=== PATIENT | female | born 1955 | race Caucasian/White ===

== ENCOUNTER 2022-07-02 15:14 | Outpatient (CLI) | payer BC, SELFPAY ==
--- NOTE | 2022-07-02 15:30 | CRLHL7_ITS ---
For Patients: As a result of the Century Cures Act, medical imaging exams and procedure reports are released immediately into your electronic medical record. You may view this report before your referring provider. If you have questions, please contact your health care provider. DXA BONE MINERAL DENSITY STUDY Current height (in): 69.0. Weight (lb): 130.0. Menopause age: 27. Ethnicity: White. 1. Have you had a previous hip or vertebral fracture? No. 2. Have you had any fractures during your adult life which did not result from significant trauma (e.g., auto accident)? No. 3. Did either of your parents have a hip fracture? No. 4. Do you smoke? No. 5. Have you ever taken Glucocorticoids? No. 6. Do you have rheumatoid arthritis? No. 7. Do you have secondary osteoporosis? No. 8. Do you drink 3 or more alcoholic drinks per day? No. 9. Are you being treated for osteoporosis? No. 10. Have you ever taken any of the following medications: Actonel, Evista, Fosamax, Miacalcin, Reclast, Boniva, Forteo, HRT (i.e. estrogen/hormone therapy), Protelos, Prolia, Vitamin D, Calcium, other ??? please specify. ANSWER: Yes, Actonel, vitamin D, calcium. 11. Do you have any of the following medical conditions: Anorexia or bulimia, asthma or emphysema, end stage renal disease, hyperparathyroidism, any seizure disorders, cancer, inflammatory bowel diseases, hysterectomy, other ??? please specify. ANSWER: Yes, hysterectomy. 12. What was your maximum height (inches)? 69. 13. Do you perform weight bearing exercise regularly? No. 14. Do you regularly consume dairy products? No. 15. Do you drink caffeinated beverages? No. 16. At what age did your period start? 15. 17. Are you premenopausal? No. 18. How many full term pregnancies have you had? 3. 19. Have you ever missed your period for more than 6 months in a row (not including or menopause)? No. TECHNIQUE: Bone mineral density study was performed using the [employer]. FINDINGS: The results of the study expressed as bone mineral density (BMD) are as follows: Neck Left: BMD: 0.672 g/cm2. T-score: -1.6. Z-score: -0.1. Right: BMD: 0.661 g/cm2. T-score: -1.7. Z-score: -0.2. Total Left: BMD: 0.775 g/cm2. T-score: -1.4. Z-score: -0.1. Right: BMD: 0.805 g/cm2. T-score: -1.1. Z-score: 0.1. Radius Left 33%: BMD: 0.607 g/cm2. T-score: -1.4. Z-score: 0.2. IMPRESSION: Osteopenia. *Comparison exams done prior to 10/2019 were performed on different unit, [employer]. COMPARISON: Compared with scan of 08/10/2017, the bone mineral density has increased by 2.9 percent at the hips. FRAX 10-year Fracture Risk Major Osteoporotic Fracture: 7.8 percent Hip Fracture: 1.0 percent Reported Risk Factors: [place] () Neck BMD=0.661, BMI=19.2 JAKE KNOX MD Diagnostic/Nuclear Medicine Radiologist [email or web address] VEE/abby be/Dictated by: Jake Knox MD @ 07/03/2022 9:05:00 AM (Electronically Signed)
== END 2022-07-02 15:15 | disposition home or self-care (01) ==
LOC: RAD 15:15
PROVIDERS: PCP Family Medicine; Visit Provider Obstetrics & Gynecology
DX: M85.80 Other specified disorders of bone density and structure, unspecified site (principal); M85.89 Other specified disorders of bone density and structure, multiple sites
CPT/HCPCS: 77080

== ENCOUNTER 2023-03-23 08:07 | Outpatient (CLI) | payer BC, SELFPAY ==
--- OUTSIDE RECORDS SUMMARY | 2023-03-27 10:38 | XMS_ITS | Continuity of Care Document ---
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 Name Role Phone Mirella VAUGHN, Tania Unavailable Unavailable Allergies, Adverse Reactions, Alerts Substance Reaction Status Criticality No Known Allergies Active No Inform ation Medications Medication Instructions Dosage Effective Dates (start - stop) Status Comments OMEPRAZOLE (unknown strength) Not Available - Active GABAPENTIN (unknown strength) Not Available - Active CELEBREX (unknown strength) Not Available - Active Procedures Procedure Date Office/Outpatient Visit,Est, Mod 2019 X-Ray Exam Lower Spine 2-3 Views 2019 Postop Followup Visit X-Ray Exam Lower Spine 2-3 Views 2018 Pa Arthdsis Post/Posterolatrl/Postinterb serge Lumbar Pa Assist Insert Spine Fixation, Posteri or PA Assist Insert interbody cage w/fusion Arthdsis Post/Posterolatrl/Postinterbody Lumbar Insert Spine Fixation, Posterior 2018 Insert interbody cage w/fusion 19 Office/Outpatient Visit,New, [facility] 2018 Office/Outpatient Visit,Est, Mod 2011 X-Ray Exam Lower Spine 2-3 Views 2011 Postop Followup Visit Postop Followup Visit Bilateral Low Back Disk Surgery/Decompre ss Bilateral Pa Low Back Disk Surgery/Decom press Office/Outpatient Visit,[facility] Low 2011 Advance Directives Directive Yes / No Effective Date File Name No Information Encounters Encounter Description Practice Location Reason(s) For Visit Diagnoses Date Provider Providers Copied on Encounter [facility], [address], [place], [place], [id number], [place] tel:[phone] [facility] No Information 1 Mehbod Amir. [facility], [address] [place] [address], [place], [place], [id number] , [place]. tel:[phone] Office/Outpa tient Visit,Est, Mod [facility], [address], [place], [place], [id number], [place] tel:[phone] [facility] Spinal stenosis, lumbar region with neurogenic claudicationLo w back pain 0 Eckrguido Shi. [address] [place] [address], [id number] , [place]. tel:[phone] Referring Provider: Yaya Lauglhin, [facility] [address], [address]. tel:[phone] [facility], [address] [place] [address], [id number], [place] tel:[phone] [facility] Encounter for other specified surgical aftercare 9 Mehbod Amir. [facility], [address] [place] [address], [place], [place], [id number] , [place]. [phone] Referring Provider: Yaya Laughlin, [facility] [address], [address]. tel:[phone] [facility], [address], [place], [place], [id number], [place] [phone] [facility] No Information 9 Tyler Shi. [address] [place] [address], [id number] , [place]. [phone] Referring Provider: Yaya Laughlin [facility] [address], [address]. tel:[phone] [facility], [address] [place] [address], [id number], [place] tel:[phone] [facility] No Information 1-201 9 Mehbod Amir. [facility], [address], [place], [place], [id number] , [place]. tel:[phone] Referring Provider: Yaya Laughlin, [address], [address]. tel:[phone] Office/Outpa tient Visit,New, Mod [facility], [address], [place], [place], [id number], [place] tel:[phone] [facility] [place] Spinal stenosis, lumbar regionRadiculo zan, lumbar region Pasquale- 0-201 9 Mehbod Amir. [facility], [address], [place], [place], [id number] , [place]. tel:[phone] Referring Provider: Yaya Laughlin [address], [address]. tel:[phone] Z [facility], [address] [place] [address], [facility], [place] tel:[phone] [facility] No Information 3 Eckroth Jose Guadalupe. [address] [place] [address], [place], [id number] , [place]. tel: [phone] Office/Outpa tient Visit,Est, Mod Z [facility], [address] [place] [address], [place], [facility], [place] tel:[phone] [facility] - [facility] No Information Dec-0 3-201 2 Mehbod Amir. [facility], [address], [place], [place], [id number] , [place]. tel:[phone] Z [facility], [address] [place] [address], [facility], [place] tel:[phone] [facility] [place] LUMBAGO Oct- 1-201 2 Mehbod Amir. [facility], [address], [place], [place], [id number] , [place]. tel: [phone] Z [facility], [address], [place], [address], [place] tel:[phone] [facility] No Information 2 Mehbod Amir. [facility], [address], [place], [place], [id number] , [place]. tel: [phone] Z [facility], [address] [place], [place] [address], [place], [address], [place] tel:[phone] [facility] No Information 2 Mehbod Amir. [facility], [address] [place] [address] [address], [place], [place], [id number] , [place]. tel: [phone] Office/Outpa tient Visit,[facility] Z [facility], [address], [place], [address], [place] tel:[phone] [facility] No Information 2 Mehbod Amir. [facility], [address], [place], [place], [id number] , [place]. tel: [phone] Family History Family Member Type Diagnosis Age At Onset No Information Payers Payer name Insurance type Covered republican ID [place] [id number] [employer]/TPA BL [id number] Social History Type Description Quantity Date Captured Comments Sex Female Smoking Status No Information Chief Complaint And Reason For Visit No Information Reason For Referral Reason For Referral No Information Plan Of Treatment Date Type Action Status Future Order: Radiology Order AP -[id number]-[id number]-[id number] Lum (APLatFlExL), Ordered on: Ordered History Of Present Illness Encounter Date Complaint History Of Prese nt Illness No Information Functional Status Date Functional Assessmen t No Information Instructions Date Instruction Additional Infor mation No Information Assessments Type Assessment Date No Information Patient Care Teams Name Effective Dates (start - stop) Status Members No Information
--- OUTSIDE RECORDS SUMMARY | 2023-03-27 10:39 | XMS_ITS | Continuity of Care Document ---
Author Name Unknown Organization [facility] Address [address] [place] [address] Phone Care Team Providers Care Bone Density Technician Name Role Phone RN, RN Unavailable Unavailable Allergies, Adverse Reactions, Alerts Substance Reaction Status Criticality nickel Active No Information alendronate sodium Rash Active No Inform ation menthol Active No Information benzocaine Active No Information latex Active No Information Medications Medication Instructions Dosage Effective Dates (start - stop) Status Comments gabapentin 100 mg capsule - Active MIRALAX (unknown strength) Not Available - Active FLONASE ALLERGY RELIEF (unknown strength) spray 1 - 2 spray by intranasal route every day in each nostril as needed Not Available - Active Xarelto 20 mg tablet take 1 tablet by oral route every day with the evening meal 20 MG - Active Tylenol 325 mg tablet take 2 Tablet by oral route every 4 hours as needed 650 MG - Active Hair,Skin and Nails tablet - Active turmeric 400 mg capsule - Active risedronate 35 mg tablet take 1 tablet by oral route every week 35 MG - Active cranberry 500 mg capsule take 1 capsule by oral route every day 1 capsule - Active Vitamin D3 1,000 unit tablet take 1 by Oral route every day 1 - Active tolterodine 1 mg tablet take 1 tablet by oral route 2 times every day 1 MG - Active risedronate 35 mg tablet take 1 tablet by oral route every week in the morning, at least 30 min before first food, beverage, or medication of day 35 MG - Active Vitamin B-12 ER 1,000 mcg tablet,extended release - Active Calcium 600 600 mg calcium (1,500 mg) tablet - Active Flovent Diskus 50 mcg/actuation powder for inhalation inhale 1 puff by inhalation route 2 times every day 50 MCG - Active Procedures Procedure Date RF Cervical/Thoracic Addt'l Level RF Cervical/Thoracic Single Level Methylprednisolone Acetate-40 Change Control for Pharmaceuticals CC Control For Rem/Void Of Mutually Excl usive Proc RF Cervical/Thoracic Single Level RF Cervical/Thoracic Addt'l Level RF Cervical/Thoracic Addt'l Level RF Cervical/Thoracic Single Level Moderate Sedation (older Than 5 Years) N Triggerpoint 1-2 Muscle Est Pt Eval 25 Min Telehealth PT Eval - Low Complexity Therapeutic Exercise Manual Therapy Est Pt Eval 25 Min RF Cervical/Thoracic Single Level RF Cervical/Thoracic Addt'l Level Moderate Sedation (older Than 5 Years) M RF Cervical/Thoracic Single Level RF Cervical/Thoracic Addt'l Level RF Cervical/Thoracic Single Level RF Cervical/Thoracic Addt'l Level Moderate Sedation (older Than 5 Years) M Change Control for Procedure(s): 2020 RF Cervical/Thoracic Addt'l Level RF Cervical/Thoracic Single Level Change Control for Diagnosis(s) 021 Est Pt Eval 25 Min Telehealth Inj Anes Facet Jt; Cerv/thor-1st Level D Inj Anes Facet Jt; Cerv/thor-2nd Level D Inj Anes Facet Jt; Cerv/thor-3rd Level D Moderate Sedation (older Than 5 Years) D Change Control for Procedure(s): 2020 Change Control, No Medical Records Avail able Inj Anes Facet Jt; Cerv/thor-1st Level D Inj Anes Facet Jt; Cerv/thor-2nd Level D Inj Anes Facet Jt; Cerv/thor-3rd Level D Lidocaine 50 Cc Change Control for Diagnosis(s) 021 Change Control for Pharmaceuticals CC Control For Rem/Void Of Mutually Excl usive Proc Inj Anes Facet Jt; Cerv/thor-1st Level D Inj Anes Facet Jt; Cerv/thor-2nd Level D Inj Anes Facet Jt; Cerv/thor-3rd Level D Inj Anes Facet Jt; Cerv/thor-3rd Level D Inj Anes Facet Jt; Cerv/thor-2nd Level D Inj Anes Facet Jt; Cerv/thor-1st Level D Bupivicaine 30ml Change Control for Diagnosis(s) 020 Change Control for Pharmaceuticals Est Pt Eval 15 Min Telehealth 0 Global Postop Visit Revise/Remove SCS IPG Change Control, No Medical Records Avail able Removal Of Spenial Neurostimulator Elect rodes Change Control for Diagnosis(s) 020 CC Control For Rem/Void Of Mutually Excl usive Proc Removal Of Spinal Neurostimulator Electr odes Revise/Remove SCS (IPG) Moderate Sedation (older Than 5 Years) S Change Control for Procedure(s): 2019 Est Pt Eval 25 Min Est Pt Eval 15 Min Est Pt Eval 15 Min Est Pt Eval 15 Min Est Pt Eval 25 Min Est Pt Eval 25 Min RF Lumbar/Sacral Single Level 9 RF Lumbar/Sacral Addt'l Level 9 Methylprednisolone Acetate-40 9 RF Lumbar/Sacral Single Level 9 RF Lumbar/Sacral Addt'l Level 9 RF Lumbar/Sacral Single Level 9 RF Lumbar/Sacral Addt'l Level 9 RF Lumbar/Sacral Addt'l Level 9 RF Lumbar/Sacral Single Level 9 RF Lumbar/Sacral Addtl Level RF Lumbar/Sacral Addtl Level Moderate Sedation (older Than 5 Years) F Est Pt Eval 25 Min Therapeutic Exercise Therapeutic Activities Pt Seen-No Charge, Per Physician 2017 Therapeutic Exercise Greater Occipital Block Ultrason Guidan Needle Bx-rad 8 Inj Anes Agent; Greater Occipt Ultrason Guidan Needle Bx-rad 8 Inj Anes Agent; Greater Occipt 18 Inj Anes Agent; Greater Occipt 18 Therapeutic Activities Therapeutic Exercise Therapeutic Exercise Therapeutic Exercise Est Pt Eval 25 Min PT Eval - Low Complexity Therapeutic Exercise Inj Anes Facet Jt; Lumb/sac-3rd Level No Inj Anes Facet Jt; Lumb/sac-1st Level No Inj Anes Facet Jt; Lumb/sac-2nd Level No Inj Anes Facet Jt; Lumb/sac-1st Level No Inj Anes Facet Jt; Lumb/sac-1st Level No Inj Anes Facet Jt; Lumb/sac-2nd Level No Inj Anes Facet Jt; Lumb/sac-2nd Level No Inj Anes Facet Jt; Lumb/sac-3rd Level No Inj Anes Facet Jt; Lumb/sac-3rd Level No Inj Anes Facet Jt; Lumb/sac-1st Level No Inj Anes Facet Jt; Lumb/sac-2nd Level No Inj Anes Facet Jt; Lumb/sac-3rd Level No Inj Anes Facet Jt; Lumb/sac-2nd Level No Inj Anes Facet Jt; Lumb/sac-3rd Level No Inj Anes Facet Jt; Lumb/sac-1st Level No Inj Anes Facet Jt; Lumb/sac-1st Level No Inj Anes Facet Jt; Lumb/sac-1st Level No Inj Anes Facet Jt; Lumb/sac-2nd Level No Inj Anes Facet Jt; Lumb/sac-2nd Level No Inj Anes Facet Jt; Lumb/sac-3rd Level No Inj Anes Facet Jt; Lumb/sac-3rd Level No Inj Anes Facet Jt; Lumb/sac-1st Level No Inj Anes Facet Jt; Lumb/sac-2nd Level No Inj Anes Facet Jt; Lumb/sac-3rd Level No Est Pt Eval 25 Min Inj Anes Epidur; Lumb/sac 1 Le 18 Inj Anes Epidur; Lumb/sac 1 Le 18 Inj Anes Epidur; Lumb/sac 1 Le 18 Inj Anes Epidur; Lumb/sac 1 Le 18 Inj Anes Epidur; Lumb/sac 1 Le 18 Inj Anes Epidur; Lumb/sac-ea A 18 Inj Anes Epidur; Lumb/sac 1 Le 18 Inj Anes Epidur; Lumb/sac-ea A 18 Inj Anes Epidur; Lumb/sac 1 Le 18 Trans Epid Lumbosac each addl 8 Est Pt Eval 25 Min Global Postop Visit Implant SCS IPG Implant SCS Epi Lead Implant SCS IPG Implant SCS Epi Lead Implant SCS Epi Lead Implant SCS Epidi Lead Implant SCS Epidi Lead Implant SCS IPG Est Pt Eval 25 Min Global Postop Visit Stim Analysis W Reprog Implant SCS Epi Lead Implant SCS Epi Lead Implant SCS Epi Lead Implant SCS Epidi Lead Implant SCS Epidi Lead Moderate Sedation (older Than 5 Years) A Moderate Sedation (older Than 5 Years) A ddl 15 Min Est Pt Eval 25 Min Neuromuscular Re-education Therapeutic Exercise Therapeutic Exercise Inject, Spine, Cerv/Thor, Epi/subarc w/i mg Guid Inject, Spine, Cerv/Thor, Epi/subarc w/i mg Guid Inject, Spine, Cerv/Thor, Epi/subarc w/i mg Guid Therapeutic Exercise Inject, Spine, Cerv/Thor, Epi/subarc w/i mg Guid Inject, Spine, Cerv/Thor, Epi/subarc w/i mg Guid Inject, Spine, Cerv/Thor, Epi/subarc w/i mg Guid Therapeutic Exercise Therapeutic Exercise Neuromuscular Re-education Est Pt Eval 15 Min PT Eval - Moderate Complexity 8 Manual Therapy Therapeutic Exercise Est Pt Eval 25 Min Psychiatric Diagnostic Evaluation Est Pt Eval 25 Min Inj Anes Facet Jt; Cerv/thor-2nd Level J Inj Anes Facet Jt; Cerv/thor-3rd Level J Inj Anes Facet Jt; Cerv/thor-1st Level J Inj Anes Facet Jt; Cerv/thor-1st Level J Inj Anes Facet Jt; Cerv/thor-2nd Level J Inj Anes Facet Jt; Cerv/thor-3rd Level J Inj Anes Facet Jt; Cerv/thor-1st Level J Inj Anes Facet Jt; Cerv/thor-2nd Level J Inj Anes Facet Jt; Cerv/thor-3rd Level J Est Pt Eval 25 Min Moderate Sedation (older Than 5 Years) O RF Cervical/Thoracic Addt'l Level RF Cervical/Thoracic Single Level RF Cervical/Thoracic Single Level RF Cervical/Thoracic Single Level RF Cervical/Thoracic Addt'l Level RF Cervical/Thoracic Addt'l Level RF Cervical/Thoracic Addt'l Level RF Cervical/Thoracic Addt'l Level RF Cervical/Thoracic Single Level RF Cervical/Thoracic Addt'l Level RF Cervical/Thoracic Addt'l Level Moderate Sedation (older Than 5 Years) O Moderate Sedation (older Than 5 Years) A ddl 15 Min Est Pt Eval 25 Min Inj Anes Facet Jt; Cerv/thor-2nd Level S Inj Anes Facet Jt; Cerv/thor-1st Level S Inj Anes Facet Jt; Cerv/thor-3rd Level S Inj Anes Facet Jt; Cerv/thor-1st Level S Inj Anes Facet Jt; Cerv/thor-2nd Level S Inj Anes Facet Jt; Cerv/thor-3rd Level S Inj Anes Facet Jt; Cerv/thor-1st Level A Inj Anes Facet Jt; Cerv/thor-3rd Level A Inj Anes Facet Jt; Cerv/thor-2nd Level A Moderate Sedation (older Than 5 Years) A Inj Anes Facet Jt; Cerv/thor-1st Level A Inj Anes Facet Jt; Cerv/thor-1st Level A Inj Anes Facet Jt; Cerv/thor-2nd Level A Inj Anes Facet Jt; Cerv/thor-2nd Level A Inj Anes Facet Jt; Cerv/thor-3rd Level A Inj Anes Facet Jt; Cerv/thor-3rd Level A Inj Anes Facet Jt; Cerv/thor-1st Level A Inj Anes Facet Jt; Cerv/thor-2nd Level A Inj Anes Facet Jt; Cerv/thor-3rd Level A New Pt Eval 45 Min Advance Directives Directive Yes / No Effective Date File Name No Information Encounters Encounter Description Practice Location Reason(s) For Visit Diagnoses Date Provider Providers Copied on Encounter [facility], [address], [place], [id number], [place] tel:[phone] [facility] No Information 2 RN RN. [address], [place], [address], [place]. tel:[phone] Referring Provider: Edmundo Moscoso, [address], [place], [address]. tel:[phone] [facility], [address], [place], [address], [place] tel:[phone] [facility] [place] right neck pain (chief complaint) Spondylosis w/o myelopathy or radiculopathy , cervical regionSpondyl s w/o myelopathy or radiculopathy , cervicothor regionSpondyl osis w/o myelopathy or radiculopathy , cervical regionSpondyl s w/o myelopathy or radiculopathy , cervicothor region 1 [facility]. [address], [place], [place], [address], [place]. tel:[phone] Referring Provider: Edmundo Moscoso, [address], [place], [address]. tel:[phone] [facility], [address], [place], [place], [address], [place] tel:[phone] [facility] No Information 1 Danis Wyatt. [address] , [address], [place], [place], [address], [place]. tel:[phone] Referring Provider: Edmundo Moscoso, [address], [place], [address]. tel:[phone] [facility], [address], [place], [address], [place] tel:[phone] [facility] Spondyls w/o myelopathy or radiculopathy , cervicothor regionCervica lgiaSpondyls w/o myelopathy or radiculopathy , cervicothor regionCervica lgia 1 [facility]. [address] [facility] [address], [place], [place], [address], [place]. tel:[phone] Referring Provider: Abdifatah Damon, [address], [place], [address]. tel:[phone] [facility], [address], [place], [place], [address], [place] tel:[phone] [facility] bilateral neck pain (chief complaint) MyalgiaMyosit isMyositis, unspecifiedMy algia, unspecified site 1 Ermelinda Wilson. [address], [place] , [place], [address], [place]. tel:[phone] Referring Provider: Yaya Damon, [address], [place], [address]. tel:[phone] Est Pt Eval 25 Min Telehealth [facility], [address], [place], [place], [address], [place] tel:[phone] [facility] bilateral neck pain (chief complaint) Cervicalgia 1 Lon Tri. [address], [place], [address], [place]. tel:[phone] Referring Provider: Yaya Damon, [address], [place], [address]. tel:[phone] [facility], [address], [place], [address], [place] tel:[phone] [facility] CervicalgiaCe rvicalgiaOthe r cervical disc degeneration, cervicothorac ic region 1 Padmini Sands. [address] [address], [place], [address], [place]. tel:[phone] Referring Provider: Yaya Damon, [address], [place], [address]. tel:[phone] Est Pt Eval 25 Min [facility], [address], [place], [place], [address], [place] tel:[phone] [facility] bilateral neck pain (chief complaint) Cervical disc disorder at C4-C5 level with radiculopathy Postlaminecto my syndrome, not elsewhere classified 1 Tricia Barahona. [address] [facility] [address], [place], [address], [place]. tel:[phone] Referring Provider: Yaya Damon, [address], [place], [address]. tel:[phone] [facility], [address], [place], [place], [address], [place] tel:[phone] [facility] No Information 1 Sd Cronin. [address], [place], [address], [place]. tel:[phone] Referring Provider: Mehrdad Forde, [address], [place], [address]. tel:[phone] [facility], [address], [place], [address], [place] tel:[phone] [facility] Paige bilateral neck pain (chief complaint) Spondylosis without myelopathy or radiculopathy , cervical regionSpondyl osis w/o myelopathy or radiculopathy , cervical regionCervica l disc disorder at C5-C6 level with myelopathyOth er spondylosis, cervical region 1 [facility]. [address], [place], [place], [address], [place]. tel:[phone] Referring Provider: Mehrdad Forde, [address], [place], [address]. tel:[phone] [facility], [address], [place], [address], [place] tel:[phone] [facility] left neck pain (chief complaint) headache (chief complaint) Spondylosis without myelopathy or radiculopathy , cervical regionOther cervical disc degeneration, high cervical regionCervica lgia 1 [facility]. [address], [place], [place], [address], [place]. tel:[phone] Referring Provider: Abdifatah Damon, [address], [place], [address]. tel:[phone] [facility], [address], [place], [place], [address], [place] tel:[phone] [facility] No Information 1 Ermelinda Gardiner. [address], [place], [place], [address], [place]. tel:[phone] Referring Provider: Yaya Damon, [address], [place], [address]. tel:[phone] Est Pt Eval [address] [facility], [address], [place], [place], [address], [place] tel:[phone] [facility] headache (chief complaint) Other cervical disc degeneration, high cervical regionOther spondylosis, cervical regionPostlam inectomy syndrome, not elsewhere classified 1 Tricia Barahona. [address] [facility] [address], [place], [address], [place]. tel:[phone] Referring Provider: Yaya Damon, [address] [facility], [place], [address]. tel:[phone] [facility], [address], [place], [place], [address], [place] tel:[phone] [facility] No Information 0 Ermelinda Gardiner. [address], [place], [place], [address], [place]. tel:[phone] Referring Provider: Abdifatah Damon, [address], [place], [address]. tel:[phone] [facility], [address], [place], [address], [place] tel:[phone] [facility] Spondylosis without myelopathy or radiculopathy , cervical regionOther cervical disc degeneration, cervicothorac ic regionCervica lgia 0 [facility]. [address], [place], [place], [address], [place]. tel:[phone] Referring Provider: Abdifatah Damon, [address], [place], [address]. tel:[phone] [facility], [address], [place], [place], [address], [place] tel:[phone] [facility] No Information 0 Sd Croinn. [address], [place], [address], [place]. tel:[phone] Referring Provider: Mehrdad Forde, [address], [place], [address]. tel:[phone] [facility], [address], [place], [address], [place] tel:[phone] [facility] bilateral neck pain (chief complaint) Spondylosis without myelopathy or radiculopathy , cervical regionSpondyl osis w/o myelopathy of cervicothorac ic regionCervica lgiaSpondylos is w/o myelopathy or radiculopathy , cervical regionSpondyl s w/o myelopathy or radiculopathy , cervicothor regionCervica lgia 0 [facility]. [address], [place], [place], [address], [place]. tel:[phone] Referring Provider: Mehrdad Forde, [address], [place], [address]. tel:[phone] Est Pt Eval 15 Min [facility], [address], [place], [place], [address], [place] tel:[phone] [facility] back pain (chief complaint) Cervical disc disorder at C4-C5 level with radiculopathy Cervical disc disorder at C5-C6 level with radiculopathy Nov-0 5-202 0 Tricia Barahona. [address], [place], [place], [address], [place]. tel:[phone] Referring Provider: Yaya Damon, [address], [place], [address]. tel:[phone] [facility], [address], [place], [place], [address], [place] tel:[phone] [facility] bilateral neck pain (chief complaint) Cervical disc disorder with radiculopathy , unspecified cervical region Sep-3 0-202 0 RN RN. [address], [place], [address], [place]. tel:[phone] Referring Provider: Yaya Damon, [address], [place], [address]. tel:[phone] [facility], [address], [place], [address], [place] tel:[phone] [facility] bilateral neck pain (chief complaint) Radiculopathy , cervical regionCervica lgiaOpioid dependence, uncomplicated Other cervical disc degeneration, high cervical region Sep-2 2-202 0 [facility]. [address], [place], [place], [address], [place]. tel:[phone] Referring Provider: Abdifatah Damon, [address], [place], [address]. tel:[phone] [facility], [address], [place], [place], [address], [place] tel:[phone] [facility] No Information Sep-2 2-202 0 Ermelinda Gardiner. [address], [place], [place], [address], [place]. tel:[phone] Referring Provider: Abdifatah Damon, [address], [place], [address]. tel:[phone] [facility], [address], [place], [place], [address], [place] tel:[phone] [facility] Occipital neuralgia Sep-2 0 Ermelinda Gardiner. [address], [place], [place], [address], [place]. tel:[phone] Est Pt Eval 25 Min [facility], [address], [place], [place], [address], [place] tel:[phone] [facility] bilateral neck pain (chief complaint) Cervical disc disorder at C4-C5 level with radiculopathy Cervical disc disorder at C5-C6 level with myelopathyCer vical disc disorder at C5-C6 level with radiculopathy Intervertebra l disc disorders w radiculopathy , lumbar regionOccipit al neuralgia Aug-2 0 [employer]. [address] [place], [address], [place]. Referring Provider: Yaya Laughlin MD M, [facility] [address], [place], [address]. tel:[phone] Est Pt Eval 15 Min [facility], [address], [place], [place], [address], [place] tel:[phone] [facility] left neck pain (chief complaint) Cervical disc disorder at C4-C5 level with radiculopathy Cervical disc disorder at C5-C6 level with myelopathyCer vical disc disorder at C5-C6 level with radiculopathy Intervertebra l disc disorders w radiculopathy , lumbar regionOccipit al neuralgiaOpio id dependence, uncomplicated Other cervical disc degeneration at C4-C5 levelOther cervical disc degeneration at C5-C6 levelOther cervical disc degeneration, high cervical region Aug-2 0 0 [employer]. [address] [place], [address], [place]. Referring Provider: Yaya Damon, [address], [place], [address]. tel:[phone] Est Pt Eval 15 Min [facility], [address] [facility] [address], [place], [address], [place] tel:[phone] [facility] bilateral neck pain (chief complaint) Cervical disc disorder at C4-C5 level with radiculopathy Cervical disc disorder at C5-C6 level with myelopathyCer vical disc disorder at C5-C6 level with radiculopathy CervicalgiaHe adacheOther spondylosis, cervical regionChronic pain syndrome 8 0 Tricia Barahona. [address], [address], [place]. tel:[phone] Referring Provider: Yaya Damon, [address], [place], [address]. tel:[phone] Est Pt Eval 15 Min [facility], [address], [address], [place] tel:[phone] [facility] Hip Pain (chief complaint) back pain (chief complaint) Low back painOther intervertebra l disc degeneration, lumbosacral regionPain in left hipPain in left legPain in left footOther spondylosis with radiculopathy , lumbar region 2-201 9 Tricia Barahona. [address], [address], [place]. tel:[phone] Referring Provider: Yaya Damon, [address], [place], [address]. tel:[phone] Est Pt Eval 25 Min [facility], [address] [facility] [address], [place], [address], [place] tel:[phone] [facility] back pain (chief complaint) Other intervertebra l disc degeneration, lumbosacral regionLow back painOther spondylosis with radiculopathy , lumbar region May-0 9 Tricia Barahona. [address] [facility] [address], [place], [place], [address], [place]. tel:[phone] Referring Provider: Yaya Damon, [address], [place], [address]. tel:[phone] Est Pt Eval 25 Min [facility], [address] [facility] [address], [place], [place], [address], [place] tel:[phone] [facility] back pain (chief complaint) HeadacheOpioi d dependence, uncomplicated Other specified dorsopathies, cervical regionCervica lgiaLow back painSpondylos is w/o myelopathy or radiculopathy , lumbar region Aug- 9 Pressley Rougui. [address] [facility] [address], [address], [place]. tel:[phone] Referring Provider: Yaya Damon, [address] [facility], [place], [address]. tel:[phone] [facility], [address] [facility], [address], [address], [place] tel:[phone] [facility] back pain (chief complaint) Spondylosis w/o myelopathy or radiculopathy , lumbar regionSpondyl s w/o myelopathy or radiculopathy , lumbosacr regionOther intervertebra l disc degeneration, lumbar regionLow back painSpondylos is w/o myelopathy or radiculopathy , lumbar regionSpondyl s w/o myelopathy or radiculopathy , lumbosacr regionOther intervertebra l disc degeneration, lumbar regionLow back pain 9 Ermelinda Gardiner. [address] [facility] [address], [place], [place], [address], [place]. tel:[phone] Referring Provider: Wyatt Zayas MD, [address], [place], [address]. tel:[phone] [facility], [address], [place], [address], [place] tel:[phone] [facility] back pain (chief complaint) Spondylosis w/o myelopathy or radiculopathy , lumbar regionSpondyl s w/o myelopathy or radiculopathy , lumbosacr regionOther intervertebra l disc degeneration, lumbar regionLow back painSpondylos is w/o myelopathy or radiculopathy , lumbar regionSpondyl s w/o myelopathy or radiculopathy , lumbosacr regionOther intervertebra l disc degeneration, lumbar regionLow back pain 9 [facility]. [address], [place], [place], [address], [place]. tel:[phone] Referring Provider: Abdifatah Damon, [address], [place], [address]. tel:[phone] [facility], [address], [place], [place], [address], [place] tel:[phone] [facility] No Information 9 Ermelinda Gardiner. [address], [place], [place], [address], [place]. tel:[phone] Referring Provider: Yaya Damon, [address] [facility], [place], [address]. tel:[phone] Est Pt Eval [address] [facility], [address], [place], [place], [address], [place] tel:[phone] [facility] back pain (chief complaint) Postlaminecto my syndrome, not elsewhere classifiedSpo ndylosis w/o myelopathy or radiculopathy , lumbar regionInterve rtebral disc disorders w radiculopathy , lumbar region 8 Dinega Gelane. [address], [place], [address], [place]. tel:[phone] Referring Provider: Yaya Laughlin MD M, [address], [place], [address]. tel:[phone] [facility], [address], [place], [place], [address], [place] tel:[phone] [facility] CervicalgiaCe rvicalgiaLow back pain 8 Harmon Shavon. [address], [place], [address], [place]. tel:[phone] Referring Provider: Wyatt Zayas MD, [address] [place] [address] [address], [place], [address]. tel:[phone] [facility], [address], [place], [place], [address], [place] tel:[phone] [facility] Postlaminecto my syndrome, not elsewhere classified 8 RN RN. [address], [place], [place], [address], [place]. tel:[phone] Referring Provider: Tash SALINAS, [address], [place], [address]. tel:[phone] [facility], [address], [place], [place], [address], [place] tel:[phone] [facility] CervicalgiaCe rvicalgiaLow back pain 8 Harmon Shavon. [address], [place], [address], [place]. tel:[phone] Referring Provider: Wyatt Zayas MD, [address], [place], [address]. tel:[phone] [facility], [address], [place], [place], [address], [place] tel:[phone] [facility] No Information 8 Andrew Bianchi. [address], [place], [place], [address], [place]. tel:[phone] Referring Provider: Tash SALINAS, [address], [place], [address]. tel:[phone] [facility], [address], [place], [address], [place] tel:[phone] [facility] headache (chief complaint) Occipital neuralgiaCerv icalgiaHeadac heOccipital neuralgiaCerv icalgiaHeadac he [facility]. [address], [place], [place], [address], [place]. tel:[phone] Referring Provider: Tash SALINAS, [address], [place], [address]. tel:[phone] [facility], [facility], [address], [place], [place], [address], [place] tel:[phone] [facility] CervicalgiaLo w back pain 8 Kroy Membrenocy. [address], [place], [address], [place]. tel:[phone] Referring Provider: Wyatt Zayas MD, [address], [place], [address]. tel:[phone] [facility], [facility], [address], [place], [place], [address], [place] tel:[phone] [facility] CervicalgiaLo w back pain 8 [facility] Lexi. [address], [place], [address], [place]. tel:[phone] Referring Provider: Wyatt Zayas MD, [address] [place] [address] [address], [place], [address]. tel:[phone] [facility], [address], [place], [place], [address], [place] tel:[phone] [facility] CervicalgiaLo w back pain Apr- 8 [facility]. [address], [place], [address], [place]. tel:[phone] Referring Provider: Wyatt Zayas MD, [address] [place] [address] [address], [place], [address]. tel:[phone] Est Pt Eval 25 Min [facility], [address], [place], [place], [address], [place] tel:[phone] [facility] back pain (chief complaint) Occipital neuralgiaCerv ical disc disorder at C4-C5 level with radiculopathy Spondylosis w/o myelopathy or radiculopathy , lumbar regionPostlam inectomy syndrome, not elsewhere classified Apr- 8 Dinega Gelane. [address], [place], [address], [place]. tel:[phone] Referring Provider: Mehrdad Smith MD, [address] [place], [address]. tel:[phone] [facility], [address], [place], [place], [address], [place] tel:[phone] [facility] CervicalgiaLo w back pain Apr- 8 Padmini Sands. [address], [place], [address], [place]. tel:[phone] Referring Provider: Wyatt Zayas MD, [address], [place], [address]. tel:[phone] [facility], [address], [place], [place], [address], [place] tel:[phone] [facility] No Information 8 Ermelinda Gardiner. [address], [place], [place], [address], [place]. tel:[phone] Referring Provider: Abdifatah Damon, [address], [place], [address]. tel:[phone] [facility], [address], [place], [address], [place] tel:[phone] [facility] back pain (chief complaint) Spondyls w/o myelopathy or radiculopathy , lumbosacr regionOther intervertebra l disc degeneration, lumbar regionLow back painSpondylos is w/o myelopathy or radiculopathy , lumbar regionSpondyl osis w/o myelopathy or radiculopathy , lumbar regionSpondyl s w/o myelopathy or radiculopathy , lumbosacr regionOther intervertebra l disc degeneration, lumbar regionLow back pain [facility]. [address], [place], [place], [address], [place]. tel:[phone] Referring Provider: Abdifatah Damon, [address], [place], [address]. tel:[phone] [facility], [address], [facility] [address], [address], [place] tel:[phone] [facility] back pain (chief complaint) Spondylosis w/o myelopathy or radiculopathy , lumbar regionSpondyl osis w/o myelopathy or radiculopathy , lumbosacral regionOther intervertebra l disc degeneration, lumbar regionLow back painSpondylos is w/o myelopathy or radiculopathy , lumbar regionSpondyl s w/o myelopathy or radiculopathy , lumbosacr regionOther intervertebra l disc degeneration, lumbar regionLow back pain [facility]. [address], [place], [place], [address], [place]. tel:[phone] Referring Provider: Abdifatah Damon, [address], [place], [address]. tel:[phone] [facility], [address], [place], [place], [address], [place] tel:[phone] [facility] No Information Ermelinda Gardiner. [address], [place], [place], [address], [place]. tel:[phone] Referring Provider: Abdifatah Damon, [address], [place], [address]. tel:[phone] [facility], [address], [place], [place], [address], [place] tel:[phone] [facility] Cervicalgia 8 Laura Smith. [address], [place], [place], [address], [place]. tel:[phone] Referring Provider: Wyatt Zayas MD, [address], [place], [address]. tel:[phone] Est Pt Eval 25 Min [facility], [address], [place], [place], [address], [place] tel:[phone] [facility] back pain (chief complaint) Other spondylosis with radiculopathy , lumbar regionOther intervertebra l disc degeneration, lumbosacral regionInterve rtebral disc disorders w radiculopathy , lumbar regionOsseous and sublux stenosis of intvrt foramin of cerv region Dinega Gelane. [address], [place], [address], [place]. tel:[phone] Referring Provider: Wyatt Zayas MD, [address], [place], [address]. tel:[phone] [facility], [address], [address], [place], [address], [place] tel:[phone] [facility] back pain (chief complaint) Other intervertebra l disc degeneration, lumbosacral regionInterve rtebral disc disorders w radiculopathy , lumbar regionInterve rtebral disc disorders w radiculopathy , lumbar regionOther intervertebra l disc degeneration, lumbosacral region [facility]. [address], [place], [place], [address], [place]. tel:[phone] Referring Provider: Abdifatah Damon, [address], [place], [address]. tel:[phone] [facility], [address], [place], [place], [address], [place] tel:[phone] [facility] No Information 8 Ermelinda Gardiner. [address], [place], [place], [address], [place]. tel:[phone] Referring Provider: Abdifatah Damon, [address], [place], [address]. tel:[phone] [facility], [address], [address], [place], [address], [place] tel:[phone] [facility] back pain (chief complaint) Other spondylosis with radiculopathy , lumbar regionPostlam inectomy syndrome, not elsewhere classifiedPos tlaminectomy syndrome, not elsewhere classifiedOth er spondylosis with radiculopathy , lumbar region [facility]. [address], [place], [place], [address], [place]. tel:[phone] Referring Provider: Abdifatah Damon, [address], [place], [address]. tel:[phone] [facility], [facility], [address], [place], [place], [address], [place] tel:[phone] [facility] No Information 8 Ermelinda Gardiner. [address], [place], [place], [address], [place]. tel:[phone] Referring Provider: Abdifatah Damon, [address], [place], [address]. tel:[phone] Est Pt Eval 25 Min [facility], [facility], [address], [place], [place], [address], [place] tel:[phone] [facility] back pain (chief complaint) Other intervertebra l disc degeneration, lumbosacral regionPostlam inectomy syndrome, not elsewhere classifiedOth er cervical disc degeneration, high cervical region Dinega Gelane. [address], [place], [address], [place]. tel:[phone] Referring Provider: Wyatt Zayas MD, [address], [place], [address]. tel:[phone] [facility], [facility], [address], [place], [place], [address], [place] tel:[phone] [facility] left neck pain (chief complaint) Cervicalgia Sep- 8 RN RN. [address], [place], [place], [address], [place]. tel:[phone] Referring Provider: Wyatt Zayas MD, [address], [place], [address]. tel:[phone] [facility], [address], [address], [place], [address], [place] tel:[phone] [facility] bilateral neck pain (chief complaint) Spondylosis w/o myelopathy or radiculopathy , cervical regionOther cervical disc degeneration at C4-C5 levelCervical giaOpioid dependence, uncomplicated Sep- [facility]. [address], [place], [place], [address], [place]. tel:[phone] Referring Provider: Abdifatah Damon, [address], [place], [address]. tel:[phone] [facility], [address], [place], [place], [address], [place] tel:[phone] [facility] No Information Sep- 8 Ermelinda Gardiner. [address], [place], [place], [address], [place]. tel:[phone] Referring Provider: Abdifatah Damon, [address], [place], [address]. tel:[phone] Est Pt Eval 25 Min [facility], [facility], [address], [place], [place], [address], [place] tel:[phone] [facility] back pain (chief complaint) Cervical disc disorder at C4-C5 level with radiculopathy Other intervertebra l disc degeneration, lumbosacral regionPostlam inectomy syndrome, not elsewhere classified Sep-0 8 Jenn Garcia. [address] [facility], [place], [place], [address], [place]. tel:[phone] Referring Provider: Wyatt Zayas MD, [address], [place], [address]. tel:[phone] [facility], [address], [place], [place], [address], [place] tel:[phone] [facility] bilateral neck pain (chief complaint) Spondylosis w/o myelopathy or radiculopathy , cervical regionCervica l disc disorder at C5-C6 level with myelopathyOth er cervical disc degeneration at C4-C5 levelCervical giaSpondylosi s w/o myelopathy or radiculopathy , cervical region 8 8 RN RN. [address] [facility], [address], [place], [place], [address], [place]. tel:[phone] Referring Provider: Wyatt Zayas MD, [address], [place], [address]. tel:[phone] [facility], [address], [place], [address], [place] tel:[phone] [facility] Spondylosis w/o myelopathy or radiculopathy , cervical regionCervica l disc disorder at C4-C5 level with radiculopathy Other cervical disc degeneration at C4-C5 levelCervical giaSpondylosi s w/o myelopathy or radiculopathy , cervical regionCervica l disc disorder at C4-C5 level with radiculopathy Other cervical disc degeneration at C4-C5 levelCervical suhail 0-201 8 [facility]. [address], [place], [place], [address], [place]. tel:[phone] Referring Provider: Abdifatah Damon, [address], [place], [address]. tel:[phone] [facility], [address], [place], [place], [address], [place] tel:[phone] [facility] No Information 8 Ermelinda Gardiner. [address], [place], [place], [address], [place]. tel:[phone] Referring Provider: Abdifatah Damon, [address], [place], [address]. tel:[phone] Est Pt Eval [address] [facility], [address], [place], [place], [address], [place] tel:[phone] [facility] bilateral neck pain (chief complaint) Postlaminecto my syndrome, not elsewhere classifiedOth er cervical disc degeneration, high cervical region Jenn Garcia. [address], [place], [place], [address], [place]. tel:[phone] Referring Provider: Wyatt Zayas MD, [address], [place], [address]. tel:[phone] [facility], [address], [place], [place], [address], [place] tel:[phone] [facility] CervicalgiaCe rvicalgia 8 Padmini Sands. [address], [place], [address], [place]. tel:[phone] Referring Provider: Wyatt Zayas MD, [address], [place], [address]. tel:[phone] [facility], [address], [place], [place], [address], [place] tel:[phone] [facility] CervicalgiaCe rvicalgia 8 Kory Elliott. [address], [place], [address], [place]. tel:[phone] Referring Provider: Wyatt Zayas MD, [address], [place], [address]. tel:[phone] [facility], [address], [place], [address], [place] tel:[phone] [facility] bilateral neck pain (chief complaint) Cervical disc disorder at C4-C5 level with radiculopathy Other cervical disc degeneration at C5-C6 levelCervical disc disorder at C4-C5 level with radiculopathy Other cervical disc degeneration at C5-C6 level [facility]. [address], [place], [place], [address], [place]. tel:[phone] Referring Provider: Abdifatah Damon, [address], [place], [address]. tel:[phone] [facility], [address], [place], [place], [address], [place] tel:[phone] [facility] No Information 8 Ermelinda Gardiner. [address], [place], [place], [address], [place]. tel:[phone] Referring Provider: Abdifatah Damon, [address], [place], [address]. tel:[phone] [facility], [address], [place], [place], [address], [place] tel:[phone] [facility] CervicalgiaCe rvicalgia 8 Kory Elliott. [address], [place], [address], [place]. tel:[phone] Referring Provider: Wyatt Zayas MD, [address], [place], [address]. tel:[phone] [facility], [address], [place], [address], [place] tel:[phone] [facility] bilateral neck pain (chief complaint) Cervical disc disorder at C4-C5 level w radiculopathy Other cervical disc degeneration at C5-C6 levelCervical disc disorder at C4-C5 level with radiculopathy Other cervical disc degeneration at C5-C6 level [facility]. [address], [place], [place], [address], [place]. tel:[phone] Referring Provider: Abdifatah Damon, [address], [place], [address]. tel:[phone] [facility], [facility], [address], [place], [place], [address], [place] tel:[phone] [facility] No Information 8 Ermelinda Gardiner. [address], [place], [place], [address], [place]. tel:[phone] Referring Provider: Abdifatah Damon, [address], [place], [address]. tel:[phone] [facility], [facility], [address], [place], [place], [address], [place] tel:[phone] [facility] CervicalgiaCe rvicalgia 8 Kory Elliott. [address], [place], [address], [place]. tel:[phone] Referring Provider: Wyatt Zayas MD, [address], [place], [address]. tel:[phone] [facility], [facility], [address], [place], [place], [address], [place] tel:[phone] [facility] CervicalgiaCe rvicalgia 8 [facility] Sarah. [address] [facility] [address], [place], [address], [place]. tel:[phone] Referring Provider: Wyatt Zayas MD, [address], [place], [address]. tel:[phone] Est Pt Eval 15 Min [facility], [address], [place], [place], [address], [place] tel:[phone] [facility] bilateral neck pain (chief complaint) Cervical disc disorder at C5-C6 level with myelopathyIns omnia, unspecifiedSp ondylosis without myelopathy or radiculopathy , site unspMyalgiaCe rvicalgia 8 [facility]. [address] [facility], [place], [place], [address], [place]. tel:[phone] Referring Provider: Wyatt Zayas MD, [address], [place], [address]. tel:[phone] [facility], [address], [place], [place], [address], [place] tel:[phone] [facility] CervicalgiaCe rvicalgia 8 [facility]. [address] [facility] [address], [place], [place], [address], [place]. tel:[phone] Referring Provider: Wyatt Zayas MD, [address], [place], [address]. tel:[phone] Est Pt Eval 25 Min [facility], [address], [place], [place], [address], [place] tel:[phone] [facility] back pain (chief complaint) Other spondylosis, cervical regionOccipit al neuralgiaSpon dylosis w/o myelopathy or radiculopathy , cervical region 8 Kristy White. [address] [facility] [address], [place], [address], [place]. tel:[phone] Referring Provider: Wyatt Zayas MD, [address], [place], [address]. tel:[phone] [facility], [facility], [address], [place], [place], [address], [place] tel:[phone] [facility] Pain disorder with related psychological factors 8 Patrica Garza. [address], [place], [place], [address], [place]. tel:[phone] Referring Provider: Wyatt Zayas MD, [address], [place], [address]. tel:[phone] Est Pt Eval 25 Min [facility], [facility], [address], [place], [place], [address], [place] tel:[phone] [facility] bilateral neck pain (chief complaint) Other specified dorsopathies, cervical regionOsseous and sublux stenosis of intvrt foramin of cerv regionHeadach eOccipital neuralgiaRadi culopathy, cervical region 8 No Information Referring Provider: Wyatt Zayas MD, [address], [place], [address]. tel:[phone] [facility], [address], [place], [address], [place] tel:[phone] [facility] bilateral neck pain (chief complaint) Spondylosis w/o myelopathy or radiculopathy , cervical regionOther spondylosis, cervical regionSpondyl s w/o myelpath or radiculopathy , occipt-atlan- ax rgnSpondylosi s w/o myelopathy or radiculopathy , cervical regionOther spondylosis, cervical regionSpondyl s w/o myelpath or radiculopathy , occipt-atlan- ax rgn [facility]. [address], [place], [place], [address], [place]. tel:[phone] Referring Provider: Phan Rueda, [address], [place], [address]. tel:[phone] [facility], [address], [place], [place], [id number], [place] tel:[phone] [facility] No Information Marybeth Chisholm. [address], [place], [place], [id number], [place]. tel:[phone] Referring Provider: Phan Rueda, [address], [place], [address]. tel:[phone] Est Pt Eval [address] [facility], [address], [place], [place], [id number], [place] tel:[phone] [facility] left neck pain (chief complaint) jaw pain (chief complaint) Cervical disc disorder at C5-C6 level with radiculopathy Other cervical disc degeneration at C6-C7 levelOther specified dorsopathies, cervical regionSpondyl osis w/o myelopathy or radiculopathy , cervical regionTMJ disorderMyalg ia 7 [facility] [employer] Dawna. [address] [place], [address], [place]. tel:[phone] Referring Provider: Wyatt Zayas MD, [address], [place], [address]. tel:[phone] [facility], [address], [address], [place], [address], [place] tel:[phone] [facility] bilateral neck pain (chief complaint) Other cervical disc degeneration, high cervical region (C2-C3, C3-C4)Spondyl s w/o myelpath or radiculopathy , occipt-atlan- ax rgnSpondylosi s w/o myelopathy or radiculopathy , cervical regionOther cervical disc degeneration, mid-cervical region (C4-C5)Cervic al disc disorder at C5-C6 level with myelopathyCer vical disc disorder at C5-C6 level with radiculopathy Spondyls w/o myelpath or radiculopathy , occipt-atlan- ax rgnSpondylosi s w/o myelopathy or radiculopathy , cervical regionOther cervical disc degeneration at C4-C5 levelOther cervical disc degeneration, high cervical region [facility]. [address] [facility] [facility] [address], [place], [id number], [place]. tel:[phone] Referring Provider: Wyatt Zayas MD, [address] [place] [address], [address]. tel:[phone] [facility], [address] [facility] [address], [place], [id number], [place] tel:[phone] [facility] No Information 7 Chana Schneider. [address], [address], [address], [place]. tel:[phone] Referring Provider: Wyatt Zayas MD, [address] [place] [address], [address]. tel:[phone] Est Pt Eval 25 Min [facility], [address] [facility] [address], [place], [id number], [place] tel:[phone] [facility] bilateral neck pain (chief complaint) bilateral shoulder pain (chief complaint) Other cervical disc degeneration at C6-C7 levelCervical disc disorder at C5-C6 level with radiculopathy Other cervical disc degeneration at C4-C5 levelOther cervical disc degeneration at C5-C6 levelCervical disc disorder at C5-C6 level with myelopathy Sep-2 Rober Toney. [address] [place], [address], [place]. tel:[phone] Referring Provider: Yaya Laughlin MD M, [address], [place], [address]. tel:[phone] [facility], [address], [address], [place], [address], [place] tel:[phone] [facility] bilateral neck pain (chief complaint) Spondyls w/o myelpath or radiculopathy , occipt-atlan- ax rgnSpondylosi s w/o myelopathy or radiculopathy , cervical regionOther cervical disc degeneration, high cervical regionOther cervical disc degeneration, mid-cervical region (C4-C5)Spondy ls w/o myelpath or radiculopathy , occipt-atlan- ax rgnSpondylosi s w/o myelopathy or radiculopathy , cervical regionOther cervical disc degeneration, high cervical regionOther cervical disc degeneration at C4-C5 level Sep-1 [facility]. [address], [place], [id number], [place]. tel:[phone] Referring Provider: Wyatt Zayas MD, [address] [place] [address], [address]. tel:[phone] [facility], [address], [place], [id number], [place] tel:[phone] [facility] No Information Sep- Chana Schneider. [address], [address], [place], [address], [place]. tel:[phone] Referring Provider: Wyatt Zayas MD, [address], [place], [address]. tel:[phone] [facility], [address], [address], [place], [address], [place] tel:[phone] [facility] Spondylosis w/o myelopathy of occipito-atla nto-axial regionSpondyl osis w/o myelopathy of cervical regionOther cervical disc degeneration at C5-C6 levelOther cervical disc degeneration, high cervical regionOther cervical disc degeneration at C6-C7 levelPostlami nectomy syndrome, not elsewhere classified [facility]. [address], [place], [place], [id number], [place]. tel:[phone] Referring Provider: Wyatt Zayas MD, [address] [place] [address] [address], [place], [address]. tel:[phone] [facility], [address], [place], [place], [address], [place] tel:[phone] [facility] No Information 7 Chana Schneider. [address], [address], [place], [address], [place]. tel:[phone] Referring Provider: Wyatt Zayas MD, [address], [place], [address]. tel:[phone] New Pt Eval 45 Min [facility], [facility], [address], [place], [place], [id number], [place] tel:[phone] [facility] Whiplash injury of cervical spine, subsequent encounterCerv ical disc disorder at C5-C6 level w radiculopathy Cervical disc disorder at C5-C6 level with myelopathyMyo fascial pain syndromeOther specified dorsopathies, cervical regionPostlam inectomy syndrome, not elsewhere classifiedIns omnia, unspecified Chana Schneider. [address], [address], [place], [address], [place]. tel:[phone] Referring Provider: Yaya Damon, [address], [place], [address]. tel:[phone] Family History Family Member Type Diagnosis Age At Onset Mother Problem (finding) Arthritis Mother Problem (finding) high blood pressure Mother Problem (finding) heart disease/stroke Sister Problem (finding) COPD Mother Problem (finding) Dementia Payers Payer name Insurance type Covered democrat ID Georgia edwards(s) [employer] [id number] Social History Type Description Quantity Date Captured Comments Alcohol Use Details Unknown Caffeine Use Details Unknown Tobacco Use Status No Information Smoking Status No Information Sex Female Chief Complaint And Reason For Visit No Information Reason For Referral Reason For Referral No Information Plan Of Treatment Date Type Action Status Referral Ordered: Physical Medicine and Rehabilitation (related to Cervical disc disorder at C4-C5 level with radiculopathy) ordered Referral Ordered: Referrals: Physical Medicine and Rehabilitation. Evaluate and treat ordered Future Order: Radiology Order X- RAY - Cervical Spine ([id number]), Ordered on: Ordered Future Order: Radiology Order X- RAY - Flexion/Extension Of Cervical Spine ([id number]), Ordered on: Ordered Future Order: Radiology Order MR I - Cervical Spine W/O Contrast ([id number]), Ordered on: Ordered History Of Present Illness Encounter Date Complaint History Of Prese nt Illness right neck pain bilateral neck pain neck pain ra diates to left shoulder blade bilateral neck pain The location is neck, shoulders. bilateral neck pain The symptoms are reported as being 4. bilateral neck pain left neck pain headache headache Severity: 8. It occurs constantly. The problem is worse. Location is ear to ear and up and neck. Pertinent negatives include dizziness, fever, loss of consciousness, memory impairment, nausea, vertigo and vomiting. bilateral neck pain back pain Severity level i s 7. The problem is fluctuating. It occurs persistently. Location of pain is upper back and neck. Pain is radiated to the right arm.The patient describes the pain as an ache and sharp. Symptoms are aggravated by movement and laying down. Symptoms are relieved by ice and massage. bilateral neck pain bilateral neck pain bilateral neck pain The symptoms are reported as being moderate. The symptoms are described as aching and sharp. Aggravating factors include Movement , laying down. Relieving factors include Ice and Massage. left neck pain The symptoms are reported as being moderate. The symptoms occur daily. The symptoms are described as aching and sharp. Aggravating factors include movement, Lying/rest. Relieving factors include Ice and Massage. bilateral neck pain The symptoms are described as aching. Aggravating factors include Ascending stairs, Sitting, Standing and Walking. Relieving factors include Ice and Massage. The patient states her pain radiates to her head and shoulders bilaterally. back pain Severity level i s 9. The problem is fluctuating. It occurs persistently. Location of pain is lower back. Pain is radiated to the left ankle, left calf, left foot, left thigh and hips bilaterally.The patient describes the pain as burning, sharp and gnawing. Symptoms are aggravated by ascending stairs, descending stairs, jumping, lifting, sitting and walking. Symptoms are relieved by heat, ice and massage. Hip Pain back pain Severity level i s 9. It occurs persistently. Location of pain is lower back. Pain is radiated to the left foot and Left leg and Bilateral hips.The patient describes the pain as burning, sharp and Gnawing. Symptoms are aggravated by jumping, lifting, sitting, walking, Computer work, Household Duties and Getting out of bed or chair and using the bathroom. Symptoms are relieved by heat, ice and massage. back pain Severity level i s 8. The problem is fluctuating. It occurs persistently. Location of pain is middle back and lower back. Pain is radiated to the left calf and left thigh.The patient describes the pain as burning and sharp. Symptoms are aggravated by ascending stairs, changing positions, daily activities, descending stairs, jumping, lifting and walking. Symptoms are relieved by heat, ice and massage. back pain Severity level i s moderate. The problem is fluctuating. It occurs persistently. Location of pain is lower back. Pain is radiated to the back.The patient describes the pain as an ache and throbbing. back pain Location of pain is lower back. back pain Severity level i s 3. The problem is fluctuating. It occurs persistently. Location of pain is lower back and neck.The patient describes the pain as an ache. Symptoms are aggravated by Turing head. Symptoms are relieved by ice. headache Severity: modera te-severe. It occurs constantly. The problem is worse. Location is frontal right, ocular right, parietal right and temporal right. There is radiation to anterior, posterior and neck. The patient describes it as sharp, squeezing and stabbing. back pain Severity level i s 6. The problem is fluctuating. It occurs persistently. Location of pain is lower back.The patient describes the pain as shooting. Symptoms are aggravated by lying/rest and walking. Symptoms are relieved by heat and ice. back pain Location of pain is lower back. Pain is radiated to the left leg. back pain Severity level i s 5. The problem is stable. It occurs persistently. Location of pain is lower back. Pain is radiated to the left ankle, right ankle, left thigh and right thigh. back pain Location of pain is lower back.The patient describes the pain as sore with spasms. Symptoms are aggravated by sitting. Symptoms are relieved by ice. back pain Location of pain is lower back. back pain Pain is radiated to the Left leg. back pain Severity level i s 4. The problem is stable. It occurs persistently. Location of pain is lower back.There is no radiation of pain. The patient describes the pain as stabbing. Symptoms are aggravated by walking. Symptoms are relieved by ice. left neck pain bilateral neck pain back pain Severity level i s 8. The problem is fluctuating. It occurs persistently. Location of pain is neck. Pain is radiated to the shoulders bilaterally.The patient describes the pain as shooting and stabbing. Symptoms are aggravated by lying/rest and turning head. Symptoms are relieved by ice. bilateral neck pain The symptoms are reported as being 3. The symptoms occur constantly. The symptoms are described as shooting and burning. Aggravating factors include laying down too long and cold air. Relieving factors include Ice. She states the symptoms are chronic. bilateral neck pain The location is posterior neck pain. Aggravating factors include turning head and laying down. Relieving factors include ice at times. patient describes her pain as burning and stabbing. bilateral neck pain The symptoms are reported as being severe. The symptoms occur Persistent. The symptoms are described as ache. She states the symptoms are chronic. bilateral neck pain bilateral neck pain The symptoms are reported as being severe. The symptoms occur constantly. The symptoms are described as aching, burning. Aggravating factors include lying down, moving arm. Relieving factors include Heat. She states the symptoms are chronic. pain radiates to the shoulders and right arm back pain Severity level i s 7. The problem is worsening. It occurs persistently. Location of pain is neck. Pain is radiated to the back.The patient describes the pain as burning and radiating and intense. Symptoms are aggravated by turning head. Symptoms are relieved by not moving. bilateral neck pain The symptoms are reported as being 5. The symptoms occur constantly. The symptoms are described as burning and aching. Aggravating factors include sleeping. Relieving factors include Ice. She states the symptoms are chronic. bilateral neck pain The symptoms are reported as being moderate. The symptoms occur Persistent. The symptoms are described as Throbbing and Burning. She states the symptoms are chronic and are stable. left neck pain The symptoms are reported as being moderate. The symptoms occur constantly. Aggravating factors include Laying down. Relieving factors include heat or ice. Associated symptoms include Aches and radiating. Pertinent negatives include Radiating to left shoulder. She states the symptoms are chronic. jaw pain The symptoms are reported as being moderate. The symptoms occur constantly. The location is left sided. Relieving factors include Hot and cold packs. Associated symptoms include aching pain. Pertinent negatives include Headaches. She states the symptoms are chronic and are poorly controlled. bilateral neck pain The symptoms are reported as being moderate. The symptoms occur constantly. The symptoms are described as Shooting,Aching. She states the symptoms are chronic. bilateral neck pain The symptoms are reported as being mild. The symptoms occur constantly. Aggravating factors include sleeping. Relieving factors include Ice and Heat. She states the symptoms are chronic. bilateral shoulder pain Location : bilateral shoulder. The pain is burning. The pain is aggravated by sleeping. The pain is relieved by heat and ice. bilateral neck pain The symptoms are reported as being moderate. The symptoms occur constantly. She states the symptoms are chronic. 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 -Follow up in one month or as needed The risks and benefits of the procedure will be reviewed with the physician on the day of the procedure. Related to Cervicalgia - Trial Voltaren or CBD balm for muscle tightness- Follow up with physical therapy at [facility] in [place], will refer- Follow up with [facility] provider as needed Related to Cervical disc disorder at C4-C5 level with radiculopathy Same plan of care as statement for above diagnosis, no changes Related to Postlaminectomy syndrome, not elsewhere classified -Follow up in clinic in 2 weeks -If headaches persist, consider Intrathecal pump trial Has tried SCS in the past and had it removed 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, cervical region - Follow up in 1-2 w eeks for CRFA at right C2,3,4,5. 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, cervical region Same plan of care as statement for above diagnosis, no changes Related to Postlaminectomy syndrome, not elsewhere classified Same plan of care as statement for above diagnosis, no changes Related to Other spondylosis, cervical region - Pending insurance approval, schedule cervical RF- Prescribe Tylenol #3, take up to 3x/day, enough for one month- Continue Gabapentin- Follow up as needed Related to Other cervical disc degeneration, high cervical region Assessments Type Assessment Date No Information Patient Care Teams Name Effective Dates (start - stop) Status Members No Information
== END 2023-03-23 08:08 | disposition home or self-care (01) ==
LOC: NFLDREF 03-27 10:36
PROVIDERS: PCP Family Medicine; Referring Provider Family Medicine; Visit Provider Internal Medicine Hematology & Oncology
DX: I26.99 Other pulmonary embolism without acute cor pulmonale (principal)
CPT/HCPCS: 81240; 81241; 85300; 85303; 85306; 85610; 85613; 85730; 86146; 86147

== ENCOUNTER 2023-04-14 10:30 | Outpatient (RCR) | payer BC, SELFPAY | END 2023-09-13 23:59 | disposition home or self-care (01) | LOC: CCIC 10:30 | PROVIDERS: PCP Family Medicine; Visit Provider Internal Medicine Hematology & Oncology | DX: I26.99 Other pulmonary embolism without acute cor pulmonale (principal); Z79.01 Long term (current) use of anticoagulants | CPT/HCPCS: 99212; 99213; 99214 ==

== ENCOUNTER 2023-07-07 19:44 | Emergency (ER) | payer BC, SELFPAY ==
[2023-07-07] VITALS (10 sets, daily range): BP systolic 122–144; BP diastolic 60–78; PULSE 62–71; RESP 18; TEMP 37.2; O2SAT 95–99; BMI 19.2
--- NOTE | 2023-07-07 20:12 | ED_ITS ---
HPI - General Adult General Chief complaint: Chest Pain Stated complaint: chest pain, heart palp Time Seen by Provider: 07/07/23 20:06 History of Present Illness HPI narrative: Patient reports a few days of nausea, unsteadiness. Tonight she started to feel ride sided chest tightness she rates at a 6/10 and is constant. She notes that about one month ago she was taking off blood thinner she took for 5 years due to history of PE. 67-year-old woman presenting to the emergency department with concern of some chest tightness. Approximate 1 month ago was discontinued from thinners after having had a pulmonary embolus. She has also felt a little unsteady is if when up and walking over the last couple of days. Not dizzy. Feels a little lightheaded. New pressure in her chest beginning tonight. These are symptoms they would correlate with pulmonary embolus that was treated for number of years until recently. Not short of breath at rest just with exertion. Generally quite active. Short of air with walking. Left ear was hurting earlier today. Does have a bed neck. MRI was done this last March with a history of bad headaches. Related Data Home Medications Medication Instructions Recorded Confirmed tolterodine 1 mg tablet 1 mg PO QDAY 04/02/22 04/14/23 calcium carbonate 600 mg calcium 600 mg PO QDAY 03/17/23 04/14/23 (1,500 mg) tablet (Calcium) cholecalciferol (vitamin D3) 25 25 mcg PO QDAY 03/17/23 04/14/23 mcg (1,000 unit) capsule clobetasol 0.05 % scalp solution topical 03/17/23 04/14/23 dabigatran etexilate 75 mg capsule mg PO BID 03/17/23 04/14/23 nortriptyline 10 mg capsule 10 mg PO QDAY 04/14/23 04/14/23 Previous Rx's Medication Instructions Recorded risedronate 35 mg tablet 35 mg PO QWEEK #12 tabs 06/16/22 Allergies Allergy/AdvReac Type Severity Reaction Status Date / Time Latex, Natural Rubber Allergy Intermediate Rash Verified 07/07/23 22:01 nickel Allergy Intermediate Rash Verified 07/07/23 22:01 alendronate sodium Allergy Mild Rash Verified 07/07/23 22:01 povidone-iodine Allergy Mild Unknown Verified 07/07/23 22:01 [From Betadine] benzocaine AdvReac Intermediate Rash Verified 07/07/23 22:01 [From Chloraseptic (benzocaine)] menthol AdvReac Intermediate Rash Verified 07/07/23 22:01 [From Chloraseptic (benzocaine)] Review of Systems Status of ROS: Reports: 6 or more systems reviewed and unremarkable except as noted in History and below [facility] Medical History History of kidney stones (2003) ?Z87.442 - Personal history of urinary calculi (ICD-10) Small bowel obstruction (~2013) ?K56.609 - Unspecified intestinal obstruction, unspecified as to partial versus complete obstruction (ICD-10) Intolerant of cold ?R68.89 - Other general symptoms and signs (ICD-10) Dyspareunia in female ?N94.10 - Unspecified dyspareunia (ICD-10) Dry skin ?L85.3 - Xerosis cutis (ICD-10) Dry mouth ?R68.2 - Dry mouth, unspecified (ICD-10) Dry hair ?L67.8 - Other hair color and hair shaft abnormalities (ICD-10) Surgical History History of breast augmentation (~2017) ?Z98.82 - Breast implant status (ICD-10) History of carpal tunnel surgery of right wrist (04/06/13) ?Z98.890 - Other specified postprocedural states (ICD-10) History of vein stripping (2003) ?Z98.890 - Other specified postprocedural states (ICD-10) Status post LASIK surgery of both eyes ?Z98.890 - Other specified postprocedural states (ICD-10) Status post breast augmentation (~2012) ?Z98.82 - Breast implant status (ICD-10) Status post abdominal hysterectomy (1982) ?Z90.710 - Acquired absence of both cervix and uterus (ICD-10) History of benign breast biopsy ?Z98.890 - Other specified postprocedural states (ICD-10) Fusion of lumbosacral spine ?M43.27 - Fusion of spine, lumbosacral region (ICD-10) Family History Mother Coronary artery disease Osteoporosis Sister Depression Social History Narrative: Cis-gender, heterosexual woman Relationship status: . 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 Smoking Status: Never smoker Exam Narrative: Exam Narrative: Pleasant. NAD. Though seems little tremulous/anxious. Lungs are clear. Extremities are without edema with negative Homans. Moving all extremities without difficulty. Heart in regular rate and rhythm without murmur rub or gallop. Cranial nerves 2-12 are intact. There is no nystagmus. Not reproducing dizziness with head movement. TMs are clear. Face is without swelling erythema or tenderness. Const: Vital Signs, click to edit/add: Vital Signs - 24 hr 07/07/23 19:55 07/07/23 19:56 07/07/23 19:57 Temperature 99 F Pulse Rate 67 65 Pulse Rate [Pulse Oximeter] 71 Respiratory Rate 18 Blood Pressure 144/78 H Blood Pressure [Ri ght Upper Arm] 144/78 H Pulse Oximetry 99 98 98 Oxygen Delivery Me thod Room Air 07/07/23 20:00 07/07/23 20:22 07/07/23 20:24 Temperature 99 F Pulse Rate 68 67 Pulse Rate [Pulse Oximeter] 67 Respiratory Rate 18 Blood Pressure 122/60 Blood Pressure [Ri ght Upper Arm] 122/60 Pulse Oximetry 96 95 95 Oxygen Delivery Me thod Room Air 07/07/23 20:30 07/07/23 20:48 07/07/23 21:00 Temperature Pulse Rate 66 62 Pulse Rate [Pulse Oximeter] Respiratory Rate Blood Pressure Blood Pressure [Ri ght Upper Arm] Pulse Oximetry 96 95 95 Oxygen Delivery Me thod 07/07/23 21:03 Temperature Pulse Rate 62 Pulse Rate [Pulse Oximeter] Respiratory Rate Blood Pressure 124/65 Blood Pressure [Ri ght Upper Arm] Pulse Oximetry 95 Oxygen Delivery Me thod Documenting provider has reviewed patient's vital signs: yes Course Vital Signs Vital signs: Initial Vital Signs Pulse Rate 67 07/07/23 19:55 Blood Pressure 144/78 H 07/07/23 19:55 Blood Pressure Mean 100 07/07/23 19:55 Pulse Oximetry 99 07/07/23 19:55 Vital Signs Pulse Rate 67 07/07/23 19:55 Blood Pressure 144/78 H 07/07/23 19:55 Pulse Oximetry 99 07/07/23 19:55 Temperature 99 F 07/07/23 20:22 Pulse Rate 62 07/07/23 21:03 Respiratory Rate 18 07/07/23 20:22 Blood Pressure 124/65 07/07/23 21:03 Pulse Oximetry 95 07/07/23 21:03 Oxygen Delivery Method Room Air 07/07/23 20:22 Medications Administered Medications: Discontinued Medications Generic Name Dose Route Start Last Admin Trade Name Freq PRN Reason Stop Dose Admin Sodium Chloride 1,000 mls @ 1,000 mls/hr 07/07/23 20:39 07/07/23 21:45 0.9 % Sodium Chloride 1000 Ml IV 07/07/23 21:38 Infused .Q1H ONE Infusion Medical Decision Making MDM Narrative Medical decision making narrative: Certainly need to screen for pulmonary embolism. Inner ear issue or pneumonia or other infectious etiology as well. Anemia? A couple of different symptoms here. Unclear if they are related. Did have relatively recent MRI which is reportedly absent of concerning finding. Wonder if the neck issue could be creating some sensation from trigger point of sorts. Will give some IV fluids particularly in light of pending contrasted CT angio of chest. Labs are overall reassuring. D-dimer though is a little bit elevated. Hemoglobin normal count normal. COVID influenza swabs are negative. Chest CT reviewed by me is absent of large pulmonary emboli. No pneumonia. Radiology over-read as below Study:?CT-Chest PE PROTOCOL W/ 955CC ISOVUE 370-07/07/2023 10:01:29 PM Ordering Physician:YAZMIN Final Report: INDICATION: History pulmonary emboli, now with lightheadedness TECHNIQUE: CT chest with i.v. contrast using pulmonary angiographic technique. Coronal and sagittal reformats were obtained. CONTRAST: 955 mL Isovue 370 COMPARISON: None FINDINGS: Cardiovascular: The main pulmonary artery is near the upper limit of normal in size measuring 2.9 cm. The heart has an unremarkable appearance and size. Ectasia of the ascending aorta is noted measuring 3.3 cm. Mediastinum: No mass or adenopathy seen. Lung: Mild linear discoid atelectasis or scarring is seen in the left lower lobe. Pleura and pericardium: No sign of pleural effusion seen. No significant pericardial effusion is present. Chest wall and axilla: Bilateral breast implants are noted. Bone: Unremarkable for age. Upper abdomen: Unremarkable. IMPRESSION: 1. No CT evidence of acute pulmonary emboli seen. Appeared overall improved during time in the emergency department the still with subtle symptoms. Vitals are stable See patient discharge plan for further discussion Lab Data Lab results reviewed: Yes I reviewed the patient's lab results Labs: Lab Results 07/07/23 07/07/23 07/07/23 Range/Units 20:41 20:48 20:50 WBC 7.73 (4.50-11.00) K/uL RBC 4.26 (4.00-5.20) m/uL Hgb 12.5 (12.0-16.0) gm/dL Hct 38.3 (33.0-51.0) % MCV 90 (80-100) fL MCH 29 (26-34) pg MCHC 33 (32-36) gm/dL RDW Coeff of [place] 12.8 (11.5-15.5) % Plt Count 326 (140-440) K/uL Neut % (Auto) 66.5 (42.0-72.0) % Lymph % (Auto) 25.1 (20-44) % [place] % (Auto) 7.4 (0.0-11.0) % Eos % (Auto) 0.3 (0.0-7.0) % Baso % (Auto) 0.4 (0.0-3.0) % Neut # (Auto) 5.15 (1.7-7.0) K/uL Lymph # (Auto) 1.94 (0.90-2.90) K/uL [place] # (Auto) 0.60 (0.00-0.90) K/UL Eos # (Auto) 0.02 (0.00-0.50) K/uL Baso # (Auto) 0.03 (0.00-0.30) K/uL Abs Immat Gran (auto) 0.02 (0.00-0.30) K/uL Imm/Tot Granulo (auto) 0.3 % D-Dimer Quant (PE/DVT) 0.92 H (0.00-0.50) ug/ml Sodium 137 (135-149) mmol/L Potassium 3.8 (3.6-5.1) mmol/L Chloride 104 (96-114) mmol/L Carbon Dioxide 24 (20-32) mmol/L Anion Gap 9 (7-15) mEq/L BUN 23 (7-30) mg/dL Creatinine 0.8 (0.5-1.5) mg/dL Estimated Creat Clear 52.21 Estimated GFR 82 ml/min Glucose 113 (60-115) mg/dL Calcium 10.2 (8.4-10.6) mg/dL Total Bilirubin 0.4 (0.1-1.5) mg/dL Direct Bilirubin 0.1 (0.0-0.5) mg/dL AST 23 (12-35) U/L ALT 21 (4-35) U/L Alkaline Phosphatase 57 (40-150) U/L Troponin I < 0.01 L (0.01-0.04) ng/mL C-Reactive Protein < 0.5 L (0.5-1.0) mg/dL NT-Pro-B Natriuret Pep 185 pg/mL Total Protein 7.2 (6.0-8.3) g/dL Albumin 4.5 (3.3-5.0) g/dL SARS-CoV-2 (PCR) Negative SARS-CoV-2 (Negative) Influenza Type A (PCR) Negative PCR FLU A (Negative) Influenza Type B (PCR) Negative PCR FLU B (Negative) RSV (PCR) Negative PCR RSV (Negative) POC Creatinine 0.9 (0.6-1.3) mg/dl POC Troponin I 0.00 L (0.01-0.04) ng/ml Discharge Plan Discharge Clinical Impression: Unsteadiness, Exertional dyspnea Patient Disposition: Home w/ Parent or Adult Condition: Stable Additional Instructions: Focus on hydration. Follow-up with your primary care provider to discuss further evaluation. Unclear if some your symptoms could be triggered by your neck problems but that certainly does not explain all that you presented here with today. Might need more of cardiopulmonary evaluation through outpatient care. Return for worsening lightheadedness, uncontrolled pain, new and focal weakness. Prescriptions: No Action risedronate 35 mg tablet 35 mg PO QWEEK Qty: 12 4RF Rx Instructions: administer at least 30 minutes before the first food or drink of the day other than water. nortriptyline 10 mg capsule 10 mg PO QDAY tolterodine 1 mg tablet 1 mg PO QDAY dabigatran etexilate 75 mg capsule PO BID calcium carbonate [Calcium 600] 600 mg calcium (1,500 mg) tablet 600 mg PO QDAY cholecalciferol (vitamin D3) 25 mcg (1,000 unit) capsule 25 mcg PO QDAY clobetasol 0.05 % solution topical Follow Up/Referrals: Mehrdad Smith MD [Primary Care Provider] - Stand Alone Forms: [facility] Info Instructions
--- NOTE | 2023-07-07 20:39 | CT_ITS ---
Patient: NATALIIA CHONG Facility:?[facility] Patient ID:?[id number] Site Patient ID:?[id number]. Site :?[id number] Study:?CT-Chest PE PROTOCOL W/ 955CC ISOVUE 370-07/07/2023 10:01:29 PM Ordering Physician:YAZMIN Final Report: INDICATION: History pulmonary emboli, now with lightheadedness TECHNIQUE: CT chest with i.v. contrast using pulmonary angiographic technique. Coronal and sagittal reformats were obtained. CONTRAST: 955 mL Isovue 370 COMPARISON: None FINDINGS: Cardiovascular: The main pulmonary artery is near the upper limit of normal in size measuring 2.9 cm. The heart has an unremarkable appearance and size. Ectasia of the ascending aorta is noted measuring 3.3 cm. Mediastinum: No mass or adenopathy seen. Lung: Mild linear discoid atelectasis or scarring is seen in the left lower lobe. Pleura and pericardium: No sign of pleural effusion seen. No significant pericardial effusion is present. Chest wall and axilla: Bilateral breast implants are noted. Bone: Unremarkable for age. Upper abdomen: Unremarkable. IMPRESSION: 1. No CT evidence of acute pulmonary emboli seen. Dictated by Yonas Delgado MD @ 07/07/2023 10:17:23 PM Please note that all CT scans at this facility use dose modulation, iterative reconstruction, and/or weight-based dosing when appropriate to reduce radiation dose to as low as reasonably achievable. Dictated by: Yonas Delgado MD @ 07/07/2023 22:17:27 Signed by:?Yonas Delgado MD @07/07/2023 10:17:27 PM (Electronic Signature)
[2023-07-07] MEDS: 0.9 % SODIUM CHLORIDE 1000 ml 1,000 ML IV (20:46)
[2023-07-07 20:58] LABS: Basophils Absolute Auto 0.03 K/uL (0.00-0.30); Basophils Percent Auto 0.4 % (0.0-3.0); Eosinophils Absolute Auto 0.02 K/uL (0.00-0.50); Eosinophils Percent Auto 0.3 % (0.0-7.0); Hematocrit 38.3 % (33.0-51.0); Hemoglobin* 12.5 gm/dL (12.0-16.0); Immature Granulocytes Abs Auto 0.02 K/uL (0.00-0.30); Immature Granulocytes Pct Auto 0.3 %; Lymphocytes Absolute Auto 1.94 K/uL (0.90-2.90); Lymphocytes Percent Auto 25.1 % (20-44); Mean Corpuscular HGB Conc 33 gm/dL (32-36); Mean Corpuscular Hemoglobin 29 pg (26-34); Mean Corpuscular Volume 90 fL (80-100); Monocytes Percent Auto 7.4 % (0.0-11.0); Neutrophils Absolute Auto 5.15 K/uL (1.7-7.0); Neutrophils Percent Auto 66.5 % (42.0-72.0); Platelet Count* 326 K/uL (140-440); RDW Coefficient of Variation % 12.8 % (11.5-15.5); Red Blood Count 4.26 m/uL (4.00-5.20); White Blood Count* 7.73 K/uL (4.50-11.00)
[2023-07-07 21:01] LABS: Creatinine, Point-of-Care* 0.9 mg/dl (0.6-1.3)
[2023-07-07 21:01] LABS: Slide Review Reflex No
[2023-07-07 21:12] LABS: Albumin* 4.5 g/dL (3.3-5.0); Chloride* 104 mmol/L (96-114); Sodium* 137 mmol/L (135-149)
[2023-07-07 21:13] LABS: Potassium* 3.8 mmol/L (3.6-5.1)
[2023-07-07 21:15] LABS: Creatinine* 0.8 mg/dL (0.5-1.5); Est. Creatinine Clearance* 52.21; Estimated Glomerular Filt Rate 82 ml/min
[2023-07-07 21:16] LABS: Alanine Aminotransferase* 21 U/L (4-35); Alkaline Phosphatase* 57 U/L (40-150); Anion Gap 9 mEq/L (7-15); Aspartate Amino Transferase* 23 U/L (12-35); Bilirubin Direct* 0.1 mg/dL (0.0-0.5); Bilirubin Total* 0.4 mg/dL (0.1-1.5); Blood Urea Nitrogen* 23 mg/dL (7-30); Calcium* 10.2 mg/dL (8.4-10.6); Carbon Dioxide* 24 mmol/L (20-32); D Dimer Quantitative* 0.92 ug/ml (0.00-0.50); Glucose* 113 mg/dL (60-115); Total Protein* 7.2 g/dL (6.0-8.3)
[2023-07-07 21:38] LABS: PCR FLU A Negative PCR FLU A (Negative); PCR FLU B Negative PCR FLU B (Negative); PCR RSV Negative PCR RSV (Negative); SARS PCR* Negative SARS-CoV-2 (Negative)
[2023-07-07 21:39] LABS: C Reactive Protein* < 0.5 mg/dL (0.5-1.0); NT Pro B Type NatriureticPept* 185 pg/mL; Troponin I* < 0.01 ng/mL (0.01-0.04)
== END 2023-07-07 23:21 | disposition home or self-care (01) ==
PROVIDERS: Emergency Provider Family Medicine; PCP Family Medicine
DX: R26.81 Unsteadiness on feet (principal); R06.09 Other forms of dyspnea
CPT/HCPCS: 36415; 71275; 80048; 80076; 82565; 83880; 84484; 85025; 85379; 86140; 87631; 93005; 94761; 99284; 99285; J7030; Q9967

== ENCOUNTER 2023-12-29 10:45 | Outpatient (CLI) | payer MEDICARE, SELFPAY | END 2023-12-29 10:46 | disposition home or self-care (01) | LOC: NFLDREF 01-01 07:06 | PROVIDERS: PCP Family Medicine; Referring Provider Family Medicine; Visit Provider Internal Medicine Hematology & Oncology | DX: I26.99 Other pulmonary embolism without acute cor pulmonale (principal) | CPT/HCPCS: 85379 ==

== ENCOUNTER 2024-01-12 13:00 | Outpatient (RCR) | payer OTHER, MEDICARE, SELFPAY ==
[2023-09-30 11:16] LABS: D Dimer Quantitative* 0.61 ug/ml (0.00-0.50)
--- NOTE | 2023-10-19 10:59 | ONC.NURNOTE ---
Mary phoned in- Dr Morfin has instructed her to restart the dabigatran 75mg caps the beginning of October Mary reports that Xarelto ($141 for 3 mths) is now much cheaper than dabigatran ($100 month) Can she go back to Xarelto 20 mg tabs?
== END 2024-03-28 23:59 | disposition home or self-care (01) ==
LOC: CCIC 13:00
PROVIDERS: PCP Family Medicine; Referring Provider Family Medicine; Visit Provider Internal Medicine Hematology & Oncology
DX: I26.99 Other pulmonary embolism without acute cor pulmonale (principal); Z79.01 Long term (current) use of anticoagulants
CPT/HCPCS: 36415; 85379; 99213; 99214; G0463

== ENCOUNTER 2024-06-14 12:44 | Outpatient (RCR) | payer MEDICARE, SELFPAY ==
--- NOTE | 2024-04-08 11:25 | ONC.NURNOTE ---
Addendum entered by Eliana Al RN 04/20/24 16:32: Pt reports she has not had any headaches since stopping Xarelto and would like to stay off of it for awhile. Reviewed with Dr. Morfin; she is comfortable with this plan. RTC 1-2 months virtual visit. Pt prefers 2 months. Sched 06/14/24. Addendum entered by Magda Nair RN 04/11/24 13:55: Dr. Morfin and clinic nurse called patient and Dr. Morfin advised patient to stop Xarelto until Thursday and see if headache goes away and to call in and let MD know. Dr. Morfin did note that D-Dimer WNL last time it was checked. Original Note: Patient left message today that she is developing headaches in the evenings after she takes her Xarelto. Headaches start around 9 pm and are getting more intense. She reports having trouble sleeping because of them. During the day she reports that it is a dull headache that is manageable. Patient also reports that she has a cold and is having blood when she is blowing her nose. It is only when she blows her nose but does have some very small pin sized blood clots and red blood in the tissue. Reports it is happening with most times she blows her nose. She is taking Mucinex D. She denies any other S/S of bleeding. Did advise patient that medication maybe drying her out and to try some saline nasal spray to see if that helps. Advised patient that there is not a provider in today to help address her headache but RN would touch base with Dr. Morfin on Thursday. Advised patient to call PCP today regarding her headache or be seen in UC or ER over the weekend if it is very bothersome. Patient verbalized understanding and is agreeable to the plan.
[2024-06-14 14:14] LABS: D Dimer Quantitative* 1.06 ug/ml (0.00-0.50)
== END 2024-12-11 23:59 | disposition home or self-care (01) ==
LOC: CCIC 12:44
PROVIDERS: PCP Family Medicine; Visit Provider Internal Medicine Hematology & Oncology
DX: I26.99 Other pulmonary embolism without acute cor pulmonale (principal); Z79.01 Long term (current) use of anticoagulants
CPT/HCPCS: 36415; 85379; 99213; 99214; G0463